=== PATIENT | female | born 1965 | race Caucasian/White ===

== ENCOUNTER 2019-12-29 06:19 | Outpatient (REF) | payer OTHER, MEDICAID, SELFPAY ==
[2019-12-29 06:40] LABS: COVID-19 Test Negative (Negative)
== END 2019-12-29 06:20 | disposition home or self-care (01) ==
LOC: HO.LAB 06:19
PROVIDERS: PCP Family Medicine; Visit Provider Internal Medicine
DX: Z20.828 Contact with and (suspected) exposure to other viral communicable diseases (principal)
CPT/HCPCS: 87635

== ENCOUNTER 2019-12-31 07:39 | Outpatient (REF) | payer OTHER, MEDICAID, SELFPAY ==
[2019-12-31 10:26] LABS: Hematocrit 42.9 % (37-47); Hemoglobin 14.1 g/dl (12.0-16.0); Mean Corpuscular HGB Conc 32.9 g/dl (31.0-35.0); Mean Corpuscular Hemoglobin 29.7 pg (27.0-33.0); Mean Corpuscular Volume 90.5 fL (80-98); Mean Platelet Volume 11.5 fL (9.4-12.3); PLT CLUMP 1; Red Blood Count 4.74 X10*6/uL (4.20-5.50); Red Cell Distribution Width 12.5 % (11.0-16.0)
[2019-12-31 11:18] LABS: Glucose Urine UA NEG (NEG); Leukocyte Esterase Urine NEG (NEG); Nitrite Urine POS (NEG); Urine Blood NEG (NEG); Urine Ketones NEG (NEG); Urine Protein NEG (NEG-TRACE)
[2019-12-31 11:19] LABS: Alanine Aminotransferase 16 U/L (0-31); Albumin Level 4.4 g/dL (3.5-5.0); Alkaline Phosphatase 67 U/L (39-117); Anion Gap 14 (12-20); Aspartate Amino Transferase 22 U/L (5-31); Bilirubin Total 0.6 mg/dL (0.0-1.0); Blood Urea Nitrogen 21 mg/dL (9-16); Calcium 9.1 mg/dL (8.4-10.2); Carbon Dioxide 23 mmol/L (22-29); Chloride 105 mmol/L (96-108); Cholesterol 224 mg/dL; Estimated Glomerular Filt Rate > 60; Glucose Random 79 mg/dL (60-115); HDL Cholesterol 57 mg/dL; LDL Cholesterol Calculated 148 mg/dl; Potassium 4.3 mmol/l (3.3-5.1); Sodium 138 mmol/L (135-145); Total Protein 7.4 g/dL (6.5-8.0); Triglycerides 97 mg/dL
[2019-12-31 11:38] LABS: Appearance Urine CLOUDY; Bacteria Urine 4+ /LPF; Color Urine YELLOW; RBC Urine 0-2 /HPF (0)
[2019-12-31 11:40] LABS: TSH reflex Free T4 0.39 mIU/mL (0.32-4.0)
[2020-01-02 05:05] LABS: Vitamin B12 625 pg/mL (200-900)
== END 2019-12-31 07:40 | disposition home or self-care (01) ==
LOC: HO.LAB 07:39
PROVIDERS: PCP Family Medicine; Visit Provider Family Medicine
DX: R30.0 Dysuria (principal); I10 Essential (primary) hypertension; E78.00 Pure hypercholesterolemia, unspecified
CPT/HCPCS: 36415; 80053; 80061; 81001; 82607; 84443; 85027; 87086; 87088; 87186

== ENCOUNTER 2020-01-26 06:49 | Outpatient (REF) | payer OTHER, MEDICAID, SELFPAY ==
[2020-01-26 07:18] LABS: COVID-19 Test Negative (Negative)
== END 2020-01-26 06:50 | disposition home or self-care (01) ==
LOC: HO.LAB 06:49
PROVIDERS: Visit Provider Internal Medicine
DX: Z20.828 Contact with and (suspected) exposure to other viral communicable diseases (principal)
CPT/HCPCS: 87635; C9803

== ENCOUNTER 2020-02-04 06:54 | Outpatient (REF) | payer OTHER, MEDICAID, SELFPAY ==
[2020-02-04 11:03] LABS: COVID-19 Test Negative (Negative)
== END 2020-02-04 06:55 | disposition home or self-care (01) ==
LOC: HO.LAB 06:54
PROVIDERS: Visit Provider Internal Medicine
DX: Z20.828 Contact with and (suspected) exposure to other viral communicable diseases (principal)
CPT/HCPCS: 87635; C9803

== ENCOUNTER 2020-02-21 12:23 | Outpatient (REF) | payer OTHER, SELFPAY ==
[2020-02-21 12:42] LABS: COVID-19 Test Negative (Negative)
== END 2020-02-21 12:24 | disposition home or self-care (01) ==
LOC: HO.EMPCOV 12:23
PROVIDERS: Visit Provider Internal Medicine
DX: Z20.828 Contact with and (suspected) exposure to other viral communicable diseases (principal)
CPT/HCPCS: 87635; C9803